=== PATIENT | female | born 1970 ===

== ENCOUNTER 2022-10-03 16:38 | Emergency (ER) | payer OTHER ==
[2022-10-03] MEDS ORDERED: Cyclobenzaprine 10 MG Tab PO ONE (16:41)
[2022-10-03] MEDS ORDERED: Ibuprofen 600 MG Tab PO ONE (16:41)
== END 2022-10-03 18:27 | disposition home or self-care (01) ==
LOC: MW.ED 16:38
DX: S16.1XXA Strain of muscle, fascia and tendon at neck level, initial encounter (principal); Z88.0 Allergy status to penicillin; Z86.16 Personal history of COVID-19; V49.40XA Driver injured in collision with unspecified motor vehicles in traffic accident, initial encounter; Y92.410 Unspecified street and highway as the place of occurrence of the external cause
CPT/HCPCS: 70450; 72125; 99284; A9270